=== PATIENT | female | born 1950 | race Caucasian/White ===

== ENCOUNTER 2019-07-22 13:47 | Inpatient (IN) ==
[2019-07-22] MEDS ORDERED: ONDANSETRON 4 MG/2 ML VIAL IV STA (14:39)
[2019-07-22] MEDS ORDERED: PANTOPRAZOLE INJ 80 MG in SODIUM CHLORIDE 0.9% 100 ML IV STA (14:39)
[2019-07-22] MEDS ORDERED: SODIUM CHLORIDE 0.9% 1,000 ML IV STA (14:41)
[2019-07-22] MEDS ORDERED: SODIUM CHLORIDE 0.9% 1,000 ML IV PRN ×2 (14:42→17:31)
[2019-07-22 15:58] LABS: Basophils % 0.1 % (0.0-0.8); Immature Granulocytes % 1.5 %; Immature Granulocytes Absolute 0.37 #; Lymphocytes # 3.9 10*3/uL (1.4-4.0); Lymphocytes % 15.6 % (21.3-54.2); Mean Corpuscular HGB Conc 31.9 GM/DL (32-36); Mean Corpuscular Volume 91.8 FL (87-102); Mean Platelet Volume 10.7 FL (9.6-12.0); Monocytes % 6.5 % (1.7-12.7); NRBC # 0.07 10*3/uL; Neutrophils % 76.3 % (38.7-73.9); Platelet Count 264 T/CUMM (130-400); Red Blood Count 1.47 MC/CUMM (3.8-5.5); Red Cell Distribution Width 15.8 % (9.3-17.3); White Blood Count 25.3 T/CUMM (4-12)
[2019-07-22 16:00] LABS: Hematocrit 13.5 VOL% (35.7-47.0); Hemoglobin 4.3 GM/DL (12.0-16.0)
[2019-07-22 16:11] LABS: PT Patient Result 10.7 SECS (9.6-12.2)
[2019-07-22 16:15] LABS: Alanine Aminotransferase 42 U/L (13-56); Albumin 2.2 G/DL (3.4-5.0); Alkaline Phosphatase 38 U/L (45-117); Aspartate Amino Transferase 26 U/L (0-37); Bilirubin,Total < 0.39 MG/DL (0.2-1.0); Blood Urea Nitrogen 65 MG/DL (7-18); Calcium 6.8 MG/DL (8.5-10.1); Estimated Glom Filtration Rate 65 ML/MIN; Glucose 88 MG/DL (74-106); Osmolality,Calculated 305.7 MOS/KG (273-304); Total Protein 4.2 G/DL (6.4-8.3)
[2019-07-22 16:58] LABS: Anisocytosis 1+; Hypochromasia 1+; Polychromasia Few; Target Cells Few
[2019-07-22 16:59] LABS: Platelet Estimate Adequate
[2019-07-22] MEDS ORDERED: ALBUTEROL 2.5 MG/3 ML NEB RESP TX PRN (17:24)
[2019-07-22] MEDS ORDERED: PANTOPRAZOLE 40 MG VIAL IV ONE (18:07)
[2019-07-22] MEDS ORDERED: PANTOPRAZOLE INJ 200 MG in SODIUM CHLORIDE 0.9% 250 ML IV SCH (18:30)
[2019-07-22] MEDS ORDERED: methylPREDNISolone SOD SUC 125 MG/2 ML VIAL ONE (18:48)
[2019-07-22] MEDS ORDERED: diphenhydrAMINE 50 MG/1 ML VIAL ONE (18:48)
[2019-07-22] MEDS ORDERED: MORPHINE 4 MG/1 ML VIAL ONE (19:13)
[2019-07-22] MEDS ORDERED: MORPHINE 4 MG/1 ML VIAL IV ONE (19:16)
[2019-07-22 20:10] LABS: ABG Base Excess -7.4 MMOL/L (-2.5-2.5); ABG HCO3 18.3 MMOL/L (20-26); ABG Oxygen Saturation 99.9 % (95-100); ABG PCO2 25.6 MM HG (35-48); ABG PH 7.424 (7.35-7.45); ABG TCO2 16.5 MMOL/L (23-27)
[2019-07-22 20:15] LABS: Apearance,Urine CLEAR (Clear); Bilirubin,Urine Negative (Negative); Blood, Urine Negative (Negative); Glucose,Urine (UA) Negative (Negative); Hyaline Casts,Urine 6 /LPF (0-3); Ketones,Urine Negative (Negative); Mucus,Urine Occasional /LPF (Occasional); Nitrite,Urine Negative (Negative); Protein,Urine Negative; RBC,Urine <1 /HPF (0-4); Squamous Epithelial Cell,Urine Occasional /HPF (0-10); Urine Color Yellow (Yellow); Urine Specific Gravity 1.019 (1.001-1.035); Urine Urobilinogen < 2.0 EU/DL (0.2-1.0)
[2019-07-22] MEDS: PIPERACILLIN/TAZOBACTAM 3,375 MG in SODIUM CHLORIDE 0.9% 100 ML IV SCH ×2 (21:32→22:30)
[2019-07-22] MEDS: SODIUM CHLORIDE 0.9% 1,000 ML IV SCH (21:32)
[2019-07-22] MEDS: rOPINIRole 0.25 MG TABLET PO SCH (22:14)
[2019-07-23] MEDS: ONDANSETRON 4 MG/2 ML VIAL IV PRN ×5 (01:38→23:33)
[2019-07-23] MEDS: HYDROmorphone 2 MG/1 ML VIAL IV PRN ×5 (01:39→23:32)
[2019-07-23 05:10] LABS: Calcium 6.8 MG/DL (8.5-10.1); Osmolality,Calculated 307.8 MOS/KG (273-304)
[2019-07-23 05:37] LABS: Basophils % 0.2 % (0.0-0.8); Hematocrit 22.2 VOL% (35.7-47.0); Hemoglobin 7.3 GM/DL (12.0-16.0); Immature Granulocytes % 2.1 %; Immature Granulocytes Absolute 0.39 #; Lymphocytes # 1.4 10*3/uL (1.4-4.0); Lymphocytes % 7.7 % (21.3-54.2); Mean Corpuscular HGB Conc 32.9 GM/DL (32-36); Mean Platelet Volume 10.4 FL (9.6-12.0); NRBC # 0.02 10*3/uL; Platelet Count 165 T/CUMM (130-400); Red Blood Count 2.44 MC/CUMM (3.8-5.5); Red Cell Distribution Width 14.1 % (9.3-17.3); White Blood Count 18.4 T/CUMM (4-12)
[2019-07-23] MEDS: PIPERACILLIN/TAZOBACTAM 3,375 MG in SODIUM CHLORIDE 0.9% 100 ML IV SCH ×3 (05:56→22:04)
[2019-07-23] MEDS ORDERED: SODIUM CHLORIDE 0.9% 1,000 ML IV PRN (08:51)
[2019-07-23] MEDS ORDERED: LACTATED RINGERS 1,000 ML IV SCH (09:00)
[2019-07-23] MEDS ORDERED: LIDOCAINE 2% 5 ML VIAL ONE (10:00)
[2019-07-23] MEDS ORDERED: PROPOFOL 200 MG/20 ML VIAL IV ONE (10:00)
[2019-07-23] MEDS ORDERED: ETOMIDATE 20 MG/10 ML VIAL IV ONE (10:00)
[2019-07-23] MEDS: SODIUM CHLORIDE 0.9% 1,000 ML IV SCH ×3 (11:24→22:10)
[2019-07-23 14:03] LABS: Hematocrit 25.6 VOL% (35.7-47.0); Hemoglobin 8.4 GM/DL (12.0-16.0)
[2019-07-23] MEDS: hydrALAZINE 20 MG/1 ML VIAL IV PRN (14:24)
[2019-07-23] MEDS: SUCRALFATE 1 GM/10 ML UDCUP PO SCH ×2 (16:24→22:04)
[2019-07-23] MEDS: rOPINIRole 0.25 MG TABLET PO SCH (22:04)
[2019-07-24] MEDS: SODIUM CHLORIDE 0.9% 1,000 ML IV SCH ×3 (02:31→13:45)
[2019-07-24] MEDS: hydrALAZINE 20 MG/1 ML VIAL IV PRN (03:07)
[2019-07-24 05:12] LABS: Basophils # 0.1 10*3/uL (0.0-0.2); Basophils % 0.2 % (0.0-0.8); Eosinophils # 0.1 10*3/uL (0.0-0.87); Eosinophils % 0.3 % (0.00-10.9); Hematocrit 21.9 VOL% (35.7-47.0); Hemoglobin 7.3 GM/DL (12.0-16.0); Immature Granulocytes % 5.1 %; Immature Granulocytes Absolute 1.19 #; Lymphocytes % 12.8 % (21.3-54.2); Mean Corpuscular HGB Conc 33.3 GM/DL (32-36); Mean Corpuscular Volume 90.9 FL (87-102); Mean Platelet Volume 9.9 FL (9.6-12.0); Monocytes % 6.9 % (1.7-12.7); NRBC # 0.17 10*3/uL; Neutrophils % 74.7 % (38.7-73.9); Platelet Count 148 T/CUMM (130-400); Red Blood Count 2.41 MC/CUMM (3.8-5.5); Red Cell Distribution Width 15.3 % (9.3-17.3); White Blood Count 23.4 T/CUMM (4-12)
[2019-07-24 05:27] LABS: Calcium 7.5 MG/DL (8.5-10.1); Osmolality,Calculated 287.1 MOS/KG (273-304)
[2019-07-24 05:36] LABS: Band Neutrophils 1 % (0-10); Hypochromasia 1+; Lymphocytes 9 % (20-55); Platelet Estimate Normal; Segmented Neutrophils 88 % (50-85); Total Cells Counted 100
[2019-07-24] MEDS: PIPERACILLIN/TAZOBACTAM 3,375 MG in SODIUM CHLORIDE 0.9% 100 ML IV SCH ×3 (06:04→20:44)
[2019-07-24] MEDS: HYDROmorphone 2 MG/1 ML VIAL IV PRN ×3 (08:14→21:04)
[2019-07-24] MEDS: ONDANSETRON 4 MG/2 ML VIAL IV PRN ×2 (08:15→15:11)
[2019-07-24] MEDS: PANTOPRAZOLE 40 MG TABLET PO SCH ×2 (08:17→20:44)
[2019-07-24] MEDS: SUCRALFATE 1 GM/10 ML UDCUP PO SCH ×4 (08:17→20:44)
[2019-07-24] MEDS ORDERED: SODIUM CHLORIDE 0.9% 1,000 ML IV PRN (08:40)
[2019-07-24] MEDS ORDERED: POTASSIUM CHLORIDE 20 MEQ/15 ML UDCUP PO ONE (08:40)
[2019-07-24] MEDS ORDERED: MELATONIN 3 MG TABLET PO PRN (08:45)
[2019-07-24] MEDS: SERTRALINE 50 MG TABLET PO SCH (12:26)
[2019-07-24] MEDS: rOPINIRole 0.25 MG TABLET PO SCH (20:44)
[2019-07-25 04:38] LABS: Basophils % 0.3 % (0.0-0.8); Eosinophils # 0.3 10*3/uL (0.0-0.87); Eosinophils % 1.8 % (0.00-10.9); Hematocrit 25.7 VOL% (35.7-47.0); Hemoglobin 8.7 GM/DL (12.0-16.0); Immature Granulocytes % 5.5 %; Immature Granulocytes Absolute 0.79 #; Lymphocytes # 2.1 10*3/uL (1.4-4.0); Lymphocytes % 14.7 % (21.3-54.2); Mean Corpuscular HGB Conc 33.9 GM/DL (32-36); Mean Corpuscular Volume 87.7 FL (87-102); Mean Platelet Volume 10.3 FL (9.6-12.0); Monocytes % 6.6 % (1.7-12.7); Neutrophils % 71.1 % (38.7-73.9); Platelet Count 161 T/CUMM (130-400); Red Blood Count 2.93 MC/CUMM (3.8-5.5); Red Cell Distribution Width 15.7 % (9.3-17.3); White Blood Count 14.5 T/CUMM (4-12)
[2019-07-25 05:04] LABS: Anisocytosis 1+; Burr Cells Slight; Eosinophils 2 % (0-10); Hypochromasia 1+; Lymphocytes 13 % (20-55); Microcytosis 1+; Myelocytes 1 %; Nucleated Red Blood Cells 1 (0-5); Polychromasia Slight; Segmented Neutrophils 80 % (50-85); Total Cells Counted 100
[2019-07-25 05:05] LABS: Platelet Estimate Adequate
[2019-07-25 05:09] LABS: % Iron Saturation 31.9 % (18-50); Calcium 7.6 MG/DL (8.5-10.1); Ferritin 87.3 ng/ml (8-252); Osmolality,Calculated 285.7 MOS/KG (273-304)
[2019-07-25 05:28] LABS: Folate 9.7 NG/ML (5.4-24.0); Vitamin B12 607 PG/ML (211-911)
[2019-07-25 05:48] LABS: Sedimentation Rate-Westergren 15 MM/HR (0-30)
[2019-07-25] MEDS: PIPERACILLIN/TAZOBACTAM 3,375 MG in SODIUM CHLORIDE 0.9% 100 ML IV SCH (06:06)
[2019-07-25] MEDS: HYDROmorphone 2 MG/1 ML VIAL IV PRN (07:19)
[2019-07-25] MEDS: SERTRALINE 50 MG TABLET PO SCH (08:03)
[2019-07-25] MEDS: PANTOPRAZOLE 40 MG TABLET PO SCH (08:03)
[2019-07-25] MEDS: SUCRALFATE 1 GM/10 ML UDCUP PO SCH ×2 (08:03→11:20)
[2019-07-25] MEDS: hydrALAZINE 20 MG/1 ML VIAL IV PRN (08:04)
[2019-07-25 08:53] LABS: Hemoglobin A1 (Alkaline) 98.1 % (96.5-98.5); Hemoglobin A2 (Alkaline) 1.9 % (1.5-3.5)
[2019-07-25 09:04] VITALS: BP 186/78
[2019-07-25] MEDS ORDERED: POTASSIUM CHLORIDE 20 MEQ TABLET PO ONE (09:33)
[2019-07-25] MEDS: SODIUM CHLORIDE 0.9% 1,000 ML IV SCH (11:22)
== END 2019-07-25 12:08 | disposition home or self-care (01) | DRG 378 ==
LOC: EDUNIT# → EDBD → N.ED 13:47 → N.EDINP 17:24 → SUATTDRO 17:24 → N.ICU 18:16 → N.4E 07-24 14:47
PROVIDERS: ADMIT Internal Medicine; ATTEND Hospitalist